=== PATIENT | female | born 1935 | race Caucasian/White ===

== ENCOUNTER → 2018-06-30 | Outpatient (CLI) | payer MEDICARE ==
[~2018-06-30] MED LIST: ASPIRIN E.C. 8181 MG PO; ATOXIMETIN-B1 CAP PO; CALCIUM 6001 TAB PO; FISH OIL500 MG PO; GLIPIZIDE10 MG PO; LISINOPRIL40 MG PO; LUTEIN20 MG PO; METOPROLOL SR25 MG PO; NIASPAN500 MG PO; SIMVASTATIN40 MG PO; [UNRECOGNIZED DRUG - OTHER] PO
== END ==
LOC: MC.RAD 10:20
DX: Z12.31 Encounter for screening mammogram for malignant neoplasm of breast (principal)

== ENCOUNTER → 2022-06-05 | Outpatient (CLI) | payer MEDICARE | LOC: MC.RAD 13:28 | DX: Z12.31 Encounter for screening mammogram for malignant neoplasm of breast (principal) ==